=== PATIENT | male | born 1945 | race Caucasian/White ===

== ENCOUNTER 2020-03-17 09:02 | Emergency (ER) | payer SELFPAY ==
[2020-03-17 09:05] VITALS: BP 154/81; PULSE 98; RESP 18; TEMP 36.5; O2SAT 99
--- NOTE | 2020-03-17 09:07 | ED.GENADUL_ITS ---
Discharge Plan Disposition Patient Disposition: HOME Condition: Good Discharge Details Clinical Impression: Encounter for medication refill Primary Care Provider: Unknown,Unknown ED Provider: Sana Fu Home Meds and New Rx's Prescriptions: New terazosin 10 mg capsule 10 mg PO DAILY Qty: 14 RF: 0 Continued atorvastatin 80 mg Tablet 80 mg PO DAILY RF: 0 clopidogrel 75 mg Tablet 75 mg PO DAILY RF: 0 terazosin 10 mg Tablet 10 mg PO DAILY RF: 0 cyanocobalamin (vitamin B-12) 1,000 mcg/mL Solution 1,000 mcg DAILY RF: 0 ferrous sulfate 325 mg (65 mg iron) Tablet 325 mg PO DAILY RF: 0 mirtazapine 15 mg Tablet 15 mg PO DAILY RF: 0 finasteride 5 mg Tablet 10 mg PO DAILY RF: 0 metoprolol tartrate 25 mg Tablet 25 mg PO DAILY RF: 0 Discharge Instructions Additional Instructions: Please continue to take your medications as previously prescribed. Please follow-up with primary care and ensure that further dosing is on its way to you. If you develop any new or worsening symptoms please return to the emergency department. Discharge Data Discharge Date/Time-TO BE ENTERED AT DEPARTURE: 03/17/20 10:16 Medical Decision Making Patient is a pleasant 74-year-old gentleman presenting today with request for medication refill. Patient is chronically on terazosin and states he took his last today. Patient typically receives his care at the [place] and his medications are mailed to him. He is requesting a refill. We were able to confirm that [facility] This was refilled for 2 weeks by myself. He will follow-up with primary care. All questions and concerns were addressed and he is in agreement this plan HPI General Mode of arrival: ambulatory . Date/Time Provider Initiated Documentation: 03/17/20 09:06 . Limitations to Documentation: no limitations . Information obtained by: patient and RN notes reviewed . HPI Narrative: Patient is a pleasant 74-year-old gentleman presents today requesting medication refill. He typically goes through affairs and reports that his medications have been mailed to him but there seems to have been a delay. Patient states that he did take his last dose of Terazosin this morning. Unclear what dosing is, he has an old bottle but he states that he believes this has changed. Related Data Home Medications Medication Instructions Recorded Confirmed atorvastatin 80 mg PO DAILY 03/17/20 03/17/20 clopidogrel 75 mg PO DAILY 03/17/20 03/17/20 cyanocobalamin (vitamin B-12) 1,000 mcg DAILY 03/17/20 03/17/20 ferrous sulfate 325 mg PO DAILY 03/17/20 03/17/20 finasteride 10 mg PO DAILY 03/17/20 03/17/20 metoprolol tartrate 25 mg PO DAILY 03/17/20 03/17/20 mirtazapine 15 mg PO DAILY 03/17/20 03/17/20 terazosin 10 mg PO DAILY 03/17/20 03/17/20 terazosin 10 mg PO DAILY #14 cap 03/17/20 Previous Rx's Medication Instructions Recorded terazosin 10 mg PO DAILY #14 cap 03/17/20 Allergies Allergy/AdvReac Type Severity Reaction Status Date / Time No Known Allergies Allergy Unverified 03/17/20 09:09 Review of Systems Constitutional Constitutional: Reports as per HPI, Denies chills, Denies fever(s) and Denies headache(s) ENT Ears, Nose, Mouth, and Throat: Denies headache(s) Cardiovascular Cardiovascular: Reports as per HPI, Denies chest pain and Denies dyspnea Respiratory Respiratory: Reports as per HPI, Denies cough and Denies dyspnea Neurologic Neurologic: Denies headache(s) [facility] Social History Smoking/Tobacco Use Status: Current every day Tobacco Type: cigarettes Alcohol Intake: never Drug use: Occasionally Substance use type: does not use Do you feel safe at home: Yes Do you feel safe in your relationship?: Yes Exam Const General: cooperative, healthy appearing, comfortable and no acute distress Nutritional Appearance: average body habitus and well nourished Orientation: alert and awake Resp Effort & Inspection: normal respiratory effort, able to speak in complete sentences and no respiratory distress Cardio Rate: regular rate Rhythm: regular rhythm Skin General skin exam: no rashes or lesions noted Neuro General: patient alert and patient awake Cognition: normal cognition Speech: speech normal Gait: normal gait Psych Appearance: grossly normal and well kempt Mental Status: mental status grossly normal Speech and Movement: speech and movement normal
[2020-03-17 10:14] VITALS: PULSE 92; RESP 18; TEMP 36.5; O2SAT 99
== END 2020-03-17 10:16 | disposition home or self-care (01) ==
PROVIDERS: Emergency Provider Physician Assistant
DX: N40.0 Benign prostatic hyperplasia without lower urinary tract symptoms (principal); Z76.0 Encounter for issue of repeat prescription
CPT/HCPCS: 99283; 99281

== ENCOUNTER 2021-07-29 12:47 | Emergency (ER) | payer OTHER, SELFPAY ==
[2021-07-29] VITALS (41 sets, daily range): BP systolic 115–144; BP diastolic 48–124; PULSE 51–118; RESP 16–26; TEMP 36.3; O2SAT 96–99
--- NOTE | 2021-07-29 12:45 | RT.EKG_ITS ---
APPROVED REPORT Exam: Resting ECG Reason for Exam: syncope Patient Location: E HR:101 bpm ECG Measurements Heart Rate 101 AXIS SD 140 P 62 QRSd 91 QRS -1 QT 340 T 50 QTc 442 Conclusion Sinus tachycardia.. Probable left atrial enlargement No ST elevation
--- NOTE | 2021-07-29 13:17 | W.ED.GENAD ---
Discharge Plan Disposition Patient Disposition: HOME Condition: Improving Discharge Details Clinical Impression: Acute dehydration Primary Care Provider: Unknown,Unknown ED Provider: Kobe Chaudhari Home Meds and New Rx's Prescriptions: Continued atorvastatin 80 mg Tablet 80 mg PO DAILY RF: 0 clopidogrel 75 mg Tablet 75 mg PO DAILY RF: 0 cyanocobalamin (vitamin B-12) 1,000 mcg/mL Solution 1,000 mcg DAILY RF: 0 ferrous sulfate 325 mg (65 mg iron) Tablet 325 mg PO DAILY RF: 0 mirtazapine 15 mg Tablet 15 mg PO DAILY RF: 0 finasteride 5 mg Tablet 10 mg PO DAILY RF: 0 metoprolol tartrate 25 mg Tablet 25 mg PO DAILY 7 Days Qty: 7 RF: 0 No Action terazosin 10 mg capsule 10 mg PO DAILY Qty: 14 RF: 0 Discharge Instructions Instructions: Dehydration (ED) Additional Instructions: Resume/continue your routine medications. I recommend you hold your Terazosin for 2 days. This medication can cause some lightheadedness You were given today's dose of metoprolol and I have provided you prescription for 1 week while you await further refill of prescriptions from the [place]. the most recent notes that we had from the [facility] noted that the metoprolol had been on hold. As you have been taking this up until 2 days ago, we will restart the medication and arrange for a follow-up for you at the [facility] for recheck. Your work-up in ER included cardiac testing with EKG and troponin, basic laboratories, and a chest x-ray. Additionally, you underwent COVID-19 testing and will receive a call regarding the Covid test results. You were dehydrated and given 1000 cc of fluid. Continue small, frequent sips of fluids today. No heavy exertion today. Home to rest. Return to the emergency department for any acute concerns. Medical Decision Making 76-year-old male states he was shoveling snow this morning when he became lightheaded and felt his vision go ascencio. He was able to sit on a chair and then make it into his house. He states that with standing in the home he had 2 further episodes of near syncope. He did not have headache or chest pain. Did not fall or injure himself. He states that he has not had his metoprolol for 2 days. Patient arrives to ER with a borderline tachycardia at triage of 100 220. He is afebrile and oxygenating 100% on room air. Blood pressure 140/62. With positional changes patient's heart rate increased 20 beats and his blood pressure drops 15 point systolic. Patient IV access established, screening laboratories, EKG, chest x-ray obtained, & he is given 1000cc normal saline fluid bolus. Laboratory showed a white count of 9, hematocrit 37, platelets 212. Electrolytes unremarkable, BUN 23 and creatinine 1.4, LFTs unremarkable, troponin negative. Patient's renal function demonstrates approximately 2 times increased to BUN from 12 to 23 and increase of creatinine from 0.9-1.4. Patient observed on traffic monitor specialist and repeat troponin obtained. It also was negative. He feels improved. I will have him hold his alpha-ruben for 2 days. I have represcribed his beta-ruben and we will obtain follow-up for him at the [facility] for recheck. HPI General Mode of arrival: ambulatory. Date/Time Provider Initiated Documentation: 07/29/21 12:48. Limitations to Documentation: no limitations. Information obtained by: patient and family. History of Present Illness 76 year old M presents to the emergency department with the chief complaint of Near syncope at home this morning, no metoprolol for 2 days, described as moderate, and is localized to the head. Patient reports no radiation. Patient started experiencing this hour(s) and it has been intermittent and now resolved. No relieving factors improve symptom(s), No exacerbating factors reported . Patient notes shortness of breath, weakness and other (Hooper his vision go dark, did not have full syncope. No seizure like activity); denies chest pain, cough and seizure. Related Data Home Medications Medication Instructions Recorded Confirmed atorvastatin 80 mg PO DAILY 03/17/20 03/17/20 clopidogrel 75 mg PO DAILY 03/17/20 07/29/21 cyanocobalamin (vitamin B-12) 1,000 mcg DAILY 03/17/20 03/17/20 ferrous sulfate 325 mg PO DAILY 03/17/20 03/17/20 finasteride 10 mg PO DAILY 03/17/20 07/29/21 mirtazapine 15 mg PO DAILY 03/17/20 07/29/21 terazosin 10 mg PO DAILY #14 cap 03/17/20 07/29/21 metoprolol tartrate 25 mg PO DAILY 7 Days #7 tab 07/29/21 Previous Rx's Medication Instructions Recorded terazosin 10 mg PO DAILY #14 cap 03/17/20 metoprolol tartrate 25 mg PO DAILY 7 Days #7 tab 07/29/21 Allergies Allergy/AdvReac Type Severity Reaction Status Date / Time No Known Allergies Allergy Verified 07/29/21 13:09 General Stated Complaint: Dizzy/Sync LISBET: 2 Review of Systems Narrative: Denies chest pain. No vomiting. Immunized against Covid x1. [facility] systems reviewed and otherwise negative PFSH All Active Problems Acute dehydration (Acute) Social History Smoking/Tobacco Use Status: Current every day Tobacco Type: cigarettes Smoking risk assessment performed?: Yes Alcohol Intake: never Drug use: Occasionally Substance use type: marijuana Do you feel safe at home: Yes Do you feel safe in your relationship?: Yes Exam Narrative Exam Narrative: GEN: awake, alert, oriented 3. Pleasant, well groomed, interactive. HEAD: Normocephalic, atraumatic ENT: Mucous membranes dry, oropharynx unremarkable, External ear exam unremarkable EYES: PERRL, EOMI NECK: Full ROM, no DAPHNE, no menigismus CHEST/RESP: Nontender, clear to auscultation bilateral, no wheeze/rhonchi/rales CARDIOVASCULAR: Regular, borderline tachycardia,, no murmur, rub dilip. 2+ Rad pulse bilateral ABDOMEN: Soft, nontender, no mass. +Bowel sounds EXT: Full ROM, no edema, no rash Neuro: Grossly normal neurologic exam, conversant, interactive. Psych: Speech fluent, thoughts congruent, affect normal Course Vital Signs Vital signs: Vital Signs Temperature 36.3 C L 07/29/21 12:55 Pulse 118 H 07/29/21 12:55 Respiratory Rate 16 07/29/21 12:55 Blood Pressure 144/124 H 07/29/21 12:55 Pulse Oximetry 99 07/29/21 12:55 Temperature 36.3 C L 07/29/21 12:55 Temperature Source Temporal Artery Scan 07/29/21 12:55 Pulse 118 H 07/29/21 12:55 Respiratory Rate 16 07/29/21 12:55 Respiratory Effort Non-Labored 07/29/21 13:00 Respiratory Depth Normal 07/29/21 13:00 Respiratory Pattern Normal 07/29/21 13:00 Blood Pressure 144/124 H 07/29/21 12:55 Blood Pressure Position Sitting 07/29/21 12:55 Pulse Oximetry 99 07/29/21 12:55 Oxygen Delivery Method Room Air 07/29/21 12:55 Oxygen Flow Rate 0 07/29/21 12:55 Pain Level 0 07/29/21 12:55
--- NOTE | 2021-07-29 13:19 | NUR.NOTE ---
Nursing Note: Orthostatic v/s done, pt denies dizziness during this set.
[2021-07-29 13:31] LABS: Source Nasal/Nares
[2021-07-29] MEDS: Metoprolol CR 25 MG TABCR PO (13:31)
[2021-07-29] MEDS: Normal Saline 500 ML IV (13:31)
[2021-07-29 13:34] LABS: Abs Immature Grans 0.03 10^3/uL (0.0-0.06); Absolute Basophil Count 0.05 10^3/uL (0.0-0.2); Absolute Eosinophil Count 0.03 10^3/uL (0.0-0.7); Absolute Lymphocyte Count 1.24 10^3/uL (1.2-3.4); Absolute Monocyte Count 0.49 10^3/uL (0.1-0.8); Absolute Neutrophil Count 7.31 10^3/uL (1.2-6.7); Basophils % 0.5; Eosinophils % 0.3; HCT 37.5 % (40.0-50.0); HGB 12.7 g/dL (13.5-17.5); Immature Grans % 0.3; Lymphocytes % 13.6; MCH 30.3 pg (27.0-33.0); MCHC 33.9 % (32.0-36.0); MCV 89.5 fL (80-95); MPV 11.3 fL (8.0-11.0); Monocytes % 5.4; Neutrophils % 79.9; Nucleated RBC 0 %; Platelet Count 212 10^3/uL (130-400); RBC 4.19 10^6/uL (4.36-5.78); RDW 13.5 % (11.8-14.1); RDW-SD 44.5 fL; WBC 9.15 10^3/uL (4.4-10.8)
--- NOTE | 2021-07-29 13:40 | DI.RAD_ITS ---
Exam(s) XR PORTABLE CHEST AP EXAM: XR PORTABLE CHEST AP CLINICAL HISTORY: near syncope TECHNIQUE: 2D digital imaging was performed of the chest. One image was obtained. An AP view was ob tained. COMPARISON: No exams were available for comparison FINDINGS: MEDIASTINUM: Normal. HEART: Normal. PULMONARY VASCULATURE: Normal. LUNGS: Clear. PLEURAL SPACE: No pleural effusion or pneumothorax. BONE:Within normal limits for the patient's age. OTHER FINDINGS:Normal. IMPRESSION: No acute pulmonary findings. DATA REPOSITORY: RADIATION DOSE DELIVERED:
[2021-07-29 13:48] LABS: ALT 23 U/L (16-63); AST 21 U/L (15-37); Albumin 4.4 g/dL (3.4-5.0); Alkaline Phosphatase 79 U/L (46-116); Anion Gap 13.6 mmol/L (3-11); BUN 23 mg/dL (7-18); Bilirubin, Total 0.5 mg/dL (0.2-1.0); CO2 21.4 mmol/L (21.0-32.0); CREATININE 1.4 mg/dL (0.70-1.30); Calcium 9.4 mg/dL (8.5-10.1); Chloride 104 mmol/L (98-107); Estimated GFR 49.41 (mL/min/1.73m2); Glucose 121 mg/dL (74-106); Magnesium 1.9 mg/dL (1.8-2.4); Potassium 3.8 mmol/L (3.5-5.1); Sodium 139 mmol/L (136-145); Total Protein 7.7 g/dL (6.4-8.2); Troponin I < 50 ng/L (<or=60)
--- NOTE | 2021-07-29 15:31 | NUR.NOTE ---
Nursing Note: Urine obtained for UA & sent to lab, pt without complaints, cont. to monitor.
[2021-07-29 15:43] LABS: Bilirubin Negative (Negative); Blood Negative (Negative); Clarity Clear (Clear); Glucose Negative (Negative); Ketones Negative (Negative); Leukocyte Esterase Negative (Negative); Nitrite Negative (Negative); Specific Gravity 1.025 (1.005-1.025); Urobilinogen 0.2 EU/dL (Up TO 0.2)
[2021-07-29 16:28] LABS: COVID-19 PCR Negative (Negative)
[2021-07-29 16:33] LABS: Troponin I < 50 ng/L (<or=60)
--- NOTE | 2021-07-29 18:23 | NUR.NOTE ---
Nursing Note: referral to [facility] to [facility]
== END 2021-07-29 16:43 | disposition home or self-care (01) ==
PROVIDERS: Emergency Provider Emergency Medicine
DX: E86.0 Dehydration (principal); R55 Syncope and collapse; F17.210 Nicotine dependence, cigarettes, uncomplicated; I10 Essential (primary) hypertension; Z20.822 Contact with and (suspected) exposure to COVID-19
CPT/HCPCS: 36415; 80053; 87635; 93005; 96360; 96361; 99284; 71045; 81003; 83735; 84484; 85025; 93010

== ENCOUNTER 2022-09-11 02:54 | Outpatient (CLI) | payer OTHER, SELFPAY ==
[2022-09-11] MEDS: Inhaler, Assist Device 1 EACH MC (14:28)
[2022-09-11] MEDS: Albuterol HFA 18 GM 200 PUFF INH IH (14:28)
--- NOTE | 2022-09-23 12:44 | W.PFT ---
Date of service: 09/11/22 Time of Service: 13:19 Pulmonary Function Test Result Requesting Provider John Indications: COPD Interpretation Spirometry: There is mild airflow limitation. There is no significant bronchodilator response. Lung Volumes: Normal lung volumes. Diffusion Capacity: Decreased diffusion. Airway Pressure: Normal airways resistance. Impression Mild airflow obstruction with a decreased diffusion. Clinical Correlation therefore is recommended.
--- NOTE | 2022-09-24 13:47 | W.PFT ---
Date of service: 09/11/22 Time of Service: 13:03 Pulmonary Function Test Result Indications: COPD Note: 6 Minute Walk Test Distance walked: 1100 feet Desaturations:none Heart rate changes: 95bpm to 105 bpm Recommendation:no supplemental oxygen needed Diana Lopez MD Pulmonary & Critical Care Medicine Clinical Correlation therefore is recommended.
== END 2022-09-11 02:55 | disposition home or self-care (01) ==
LOC: RT 02:54
PROVIDERS: Visit Provider Student in an Organized Health Care Education/Training Program
DX: J44.9 Chronic obstructive pulmonary disease, unspecified (principal)
CPT/HCPCS: 94060; 94618; 94726; 94729